=== PATIENT | male | born 1990 | race Caucasian/White ===

== ENCOUNTER 2019-06-18 21:44 | Emergency (ER) | payer SELFPAY, MEDICAID | END 2019-06-18 22:32 | disposition home or self-care (01) | LOC: FTE 22:32 | DX: S90.862A Insect bite (nonvenomous), left foot, initial encounter (principal); F17.210 Nicotine dependence, cigarettes, uncomplicated; W57.XXXA Bitten or stung by nonvenomous insect and other nonvenomous arthropods, initial encounter; Y92.9 Unspecified place or not applicable | CPT/HCPCS: 99283 ==

== ENCOUNTER 2019-07-07 10:32 | Emergency (ER) | payer SELFPAY ==
[2019-07-07] MEDS: KETOROLAC 30 MG INJ IM (12:25)
== END 2019-07-07 14:01 | disposition home or self-care (01) ==
LOC: FTE 14:01
DX: S00.01XA Abrasion of scalp, initial encounter (principal); F17.210 Nicotine dependence, cigarettes, uncomplicated; S80.12XA Contusion of left lower leg, initial encounter; Y08.89XA Assault by other specified means, initial encounter
CPT/HCPCS: 73590; 96372; 99284-25